=== PATIENT | female | born 1990 | race Caucasian/White ===

== ENCOUNTER → 2020-07-23 15:33 | Outpatient (CLI) | payer OTHER, SELFPAY ==
[2015-02-07 03:53] VITALS: BMI 24.9
== END ==
PROVIDERS: Referring Provider Otolaryngology; Visit Provider Otolaryngology
DX: H66.41 Suppurative otitis media, unspecified, right ear (principal)
CPT/HCPCS: 87070; 87075; 87205

== ENCOUNTER 2020-08-29 16:43 | Emergency (ER) | payer OTHER, SELFPAY ==
[2020-08-29 16:45] VITALS: BP 127/86; PULSE 88; RESP 16; TEMP 31.1; O2SAT 99; BMI 29.1
--- NOTE | 2020-08-29 17:38 | EKG12_ITS ---
Test Reason : CHEST PAIN Blood Pressure : / mmHG Vent. Rate : 069 BPM Atrial Rate : 069 BPM P-R Int : 144 ms QRS Dur : 082 ms QT Int : 392 ms P-R-T Axes : 063 038 035 degrees QTc Int : 420 ms Normal sinus rhythm Normal ECG Confirmed by LOCO ALMEIDA, TWYLA ([id number]), order editor WILIAM LUEVANO ([id number]) on 08/30/2020 10:24:09 AM Referred By: DC Confirmed By:TWYLA ADAN MD
--- NOTE | 2020-08-29 17:50 | RAD_ITS ---
EXAM: XR CHEST, 1 VIEW : 1990 CLINICAL INDICATION: chest pain, heartburn, lightheaded TECHNIQUE: Frontal view of the chest. This report was created using [employer] report generation technology. COMPARISON: None. FINDINGS: LUNGS AND PLEURAL SPACES: Unremarkable. No consolidation or edema. No pneumothorax. No effusion. HEART: Unremarkable. Cardiac silhouette not enlarged. MEDIASTINUM: Central airways and mediastinal contour are unremarkable. BONES/JOINTS: Unremarkable. SOFT TISSUES: Unremarkable. RAD/Chest 1 View (Portable) IMPRESSION: No radiographic evidence of acute cardiopulmonary disease. at 1807 Reported and signed by: Gen Lowe MD Electronically Signed: Gen Lowe MD at 18:06 EDT Tel , Service support ,
[2020-08-29 18:03] LABS: Absolute Lymphocyte Count 1.98 X10^3/uL (0.83-4.51); Absolute Neutrophil Count 6.2 X10^3/uL (2.0-7.7); Basophil# 0.01 X10^3/uL; Basophil% 0.1 % (0-1); Eosinophil# 0.15 X10^3/uL; Eosinophils% 1.7 % (0-5); Hemoglobin 13.9 g/dL (12.0-15.0); Lymphocyte # 1.98 X10^3/ul (0.83-4.51); Mean Corp Hgb Conc 33.1 g/dL (32-36); Mean Corpuscular Hgb 30.1 pg (27.0-32.0); Mean Corpuscular Volume 90.9 fL (81-99); Mean Platelet Vol. 10.7 fl (6.2-12.0); Monocyte# 0.62 X10^3/uL; Monocyte% 6.9 % (0-10); NRBC Flagged by Analyzer 0 % (0-5); Neutrophil # 6.21 X10^3/uL (2.7-7.7); Neutrophil % 68.9 % (47-70); Platelet Count 236 K/mm3 (150-450); RBC Distribution Width CV 12.8 % (11.6-14.6); RBC Distribution Width SD 42.5 fl (35.1-43.9); Red Blood Count 4.62 M/mm3 (4.2-5.4)
[2020-08-29 18:18] LABS: Anion Gap 2 (5-15); BUN 10 mg/dL (7-18); BUN/Creat Ratio 11.8 RATIO (10-20); Calcium,Total 9.5 mg/dL (8.5-10.1); Chloride 109 mmol/L (98-107); Creatinine, Serum 0.85 mg/dL (0.55-1.02); EST Glomerular Filtration Rate 83 mL/min (>60); Est Glom Filt Rate - Afr Amer 100 mL/min (>60); Glucose 99 mg/dL (74-106); Potassium 3.9 mmol/L (3.5-5.1); Sodium Level 141 mmol/L (136-145)
--- NOTE | 2020-08-29 18:27 | EDS_ITS ---
HPI History of Present Illness Chief Complaint: Anxiety Informant: patient Onset/Context/Timing Onset: Today Timing: Continuous Quality: Feels like icy hot Location: Chest and right forearm Current Severity: Mild Associated Symptoms Associated Symptoms: Anxiety, body aches Narrative Narrative: Patient has anxiety symptoms. Worse with caffeine. She never had this chest pain with it before. No history of blood clots, heart disease. No leg swelling or calf pain. No hormone use. She is a smoker. Prior similar symptoms: No Recent Illness/Hospitalization: No PFSH PFSH Home Medications No Known/Unobtainable [No Known Home Medications] 02/07/15 [History Last Taken Unknown] Allergy/AdvReac Type Severity Reaction Status Date / Time No Known Allergies Allergy Verified 08/29/20 17:41 Social History Smoking Status: Current every day smoker tobacco type: cigarettes ROS ROS ED Constitutional Constitutional ED: Denies chills or fever(s) Eyes Eyes: Denies change in vision ENT ENT ED: Denies ear pain Cardiovascular Cardiovascular: Reports chest pain; Denies palpitations Respiratory/Chest Respiratory/Chest: Denies cough or dyspnea Gastrointestinal Gastrointestinal: Denies abdominal pain, nausea or vomiting Genitourinary Genitourinary ED: Denies dysuria Musculoskeletal Musculoskeletal: Reports back pain and myalgias; Denies arthralgias or neck pain Integumentary Denies rash Neurologic Neurologic: Denies headache(s) Psychiatric Psychiatric: Denies depression Endocrine Endocrinology: Denies polyuria Allergic/Immunologic Allergic/Immunologic ED: Denies urticaria EXAM Physical Exam Const Vital Signs: 08/29/20 16:45 08/29/20 17:50 Temperature 88 F L Temperature Source Temporal Pulse Rate 88 Respiratory Rate 16 Blood Pressure 127/86 H Blood Pressure Mean 99 Pulse Ox 99 Oxygen Delivery Method Room Air Room Air Positive well nourished and well developed General Appearance ED: well developed HEENT Negative for trauma Eyes EOMs intact bilaterally Neck supple Resp normal respiratory effort and clear to auscultation bilaterally Cardio regular rate and regular rhythm Extremity normal to inspection General Extremety ED: Negative for edema or tenderness General Extremity: Negative for edema Neuro oriented x3 Sensorium / Orientation: alert Psych mental status grossly normal Skin no rashes or lesions noted MDM MDM MDM Narrative Medical decision making narrative: Patient has essentially no risk factors for ACS except for smoking. She is PERC negative. Work-up here was unremarkable. This may be anxiety or myofascial pain. No indication for inpatient care or further diagnostic testing. Lab Data Attestation: I reviewed the patient's lab results. Labs: Laboratory Results - last 24 hr 08/29/20 08/29/20 17:50 17:50 WBC 9.0 RBC 4.62 Hgb 13.9 Hct 42.0 MCV 90.9 MCH 30.1 MCHC 33.1 RDW Std Deviation 42.5 RDW Coeff of Mari 12.8 Plt Count 236 MPV 10.7 Immature Gran % (Auto) 0.400 Neut % (Auto) 68.9 Lymph % (Auto) 22.0 [place] % (Auto) 6.9 Eos % (Auto) 1.7 Baso % (Auto) 0.1 Absolute Neuts (auto) 6.2 Absolute Lymphs (auto) 1.98 Nucleated RBC % 0 Sodium 141 Potassium 3.9 Chloride 109 H Carbon Dioxide 30.0 Anion Gap 2 L BUN 10 Creatinine 0.85 Estim Creat Clear Calc 85.50 Est GFR (MDRD) Af Amer 100 Est GFR (MDRD) Non-Af 83 BUN/Creatinine Ratio 11.8 Glucose 99 Calcium 9.5 Troponin I < 0.015 Radiography Chest X-Ray - ED: 1 View, Read by ED Physician, Normal and - Diagnostic Testing: Radiology Impression Chest X-Ray 08/29/20 17:50 IMPRESSION: No radiographic evidence of acute cardiopulmonary disease. at 1807 Reported and signed by: Gen Lowe MD Electronically Signed: Gen Lowe MD at 18:06 EDT Tel , Service support , EKG Initial EKG: Attestation: I personally reviewed and interpreted this EKG as follows: Interpretation: Sinus Rhythm and No Acute Injury Pattern Discharge Plan Triage Chief Complaint: Anxiety ED Provider: Lasha David Dx/Rx/DC Orders Clinical Impression: Atypical chest pain Instructions: ED Anxiety Reaction Prescriptions: No Action No Known Home Medications RF: 0 Primary Care Provider: Care Physician,No Primary Referrals: Britany Rogers [NON-STAFF] - Care Physician,No Primary [Primary Care Provider] -
[2020-08-29 18:51] VITALS: BP 137/71; PULSE 73; RESP 16; O2SAT 98
== END 2020-08-29 18:52 | disposition home or self-care (01) ==
LOC: ED 18:09
PROVIDERS: Emergency Provider Emergency Medicine
DX: F41.9 Anxiety disorder, unspecified (principal); R07.89 Other chest pain; F17.210 Nicotine dependence, cigarettes, uncomplicated
CPT/HCPCS: 71045; 80048; 84484; 85025; 93005; 99284